=== PATIENT | female | born 1945 | race Native Hawaiian/Other Pacific Islander ===

== ENCOUNTER 2016-06-22 16:35 | Outpatient (CLI) | payer OTHER ==
[~2016-06-22 16:35] MED LIST: ALLO300T23 PO; ESTR0.45 PO; FLEXERIL10 MG PO; FURO40TA93; FURO40TA93 PO; GABA300C2 PO; GABAPENTIN600 MG OR; HEARTBURN150 MG OR; HUMALOG100 MG/ML SC; HYDR25TA15 PO; INSU100I2 SC; K-TAB20 MEQ PO; LEVOTHROID75 MCG OR; MECLIZINE25 MG PO; MELOXICAM15 MG OR; METO5TAB38 PO; NABU750T PO; NEURONTIN800 MG PO; NEXIUM40 M1 OR; NEXIUM40 M1 PO; NORCO 10/325***1 TAB PO; PHENERGAN25 MG PR; POT CL MICRO20 MEQ PO; PREMARIN0.45 MG PO; ROPINIROLE2 MG; ROPINIROLE2 MG PO
[2016-06-22 17:04] LABS: PLATELET COUNT 118 K/uL (152-353)
== END 2016-06-22 22:12 | disposition home or self-care (01) ==
LOC: LABW 16:35
PROVIDERS: Nurse Practitioner
DX: E11.9 Type 2 diabetes mellitus without complications (principal); D64.9 Anemia, unspecified; N28.9 Disorder of kidney and ureter, unspecified
CPT/HCPCS: 36415; 80048; 82728; 83036; 83540; 85027

== ENCOUNTER 2016-11-15 01:42 | Emergency (ER) | payer OTHER ==
[~2016-11-15] VITALS: Ht 165.1 cm; Wt 83.0 kg
[2016-11-15 02:31] LABS: PLATELET COUNT 137 K/uL (152-353)
[2016-11-15 03:30] LABS: POTASSIUM 4.5 mmol/L (3.6-5.2)
[2016-11-15 07:02] VITALS: BP 139/90; TEMP 98.1
== END 2016-11-15 07:02 | disposition home or self-care (01) ==
LOC: ED 01:42
DX: N39.0 Urinary tract infection, site not specified (principal); K57.90 Diverticulosis of intestine, part unspecified, without perforation or abscess without bleeding
CPT/HCPCS: 80053; 81000; 81002; 82962; 85027; 87086; 87088; 96372; 99283; J0696; J1815

== ENCOUNTER 2017-03-17 18:52 | Observation (INO) | payer OTHER ==
[~2017-03-17] VITALS: Ht 165.1 cm; Wt 83.7 kg
[2017-03-17 19:10] VITALS: BP 174/72; TEMP 98
[2017-03-17 20:35] LABS: PLATELET COUNT 205 K/uL (152-353)
[2017-03-17 20:44] LABS: POTASSIUM 4.1 mmol/L (3.6-5.2)
[2017-03-18 00:49] VITALS: BP 184/67; TEMP 98.8; Ht 165.1 cm; Wt 83.7 kg
[2017-03-18] MEDS ORDERED: MECLIZINE25 MG OR (01:42)
[2017-03-18] MEDS ORDERED: LEVO-T25 MCG PO (01:44)
[2017-03-18 04:00] VITALS: BP 149/54; TEMP 98.1
[2017-03-18 08:00] VITALS: BP 144/71; TEMP 97.9
[2017-03-18 11:54] VITALS: BP 153/49; TEMP 98.2
[2017-03-18 16:00] VITALS: BP 134/72; TEMP 97.7
[2017-03-18 20:00] VITALS: BP 152/54; TEMP 97.9
[2017-03-19] VITALS: BP 152/60; TEMP 98.1
[2017-03-19 04:00] VITALS: BP 126/84; TEMP 98.4
[2017-03-19 08:00] VITALS: BP 168/72; TEMP 98.4
[2017-03-19 12:00] VITALS: BP 145/64; TEMP 98.4
[2017-03-19 16:00] VITALS: BP 170/55; TEMP 98.1
== END 2017-03-19 19:10 | disposition home or self-care (01) ==
LOC: ED 18:52 → MED/SURG 22:39
PROVIDERS: Specialist; ADMIT Internal Medicine
DX: J18.8 Other pneumonia, unspecified organism (principal); E11.9 Type 2 diabetes mellitus without complications; J44.9 Chronic obstructive pulmonary disease, unspecified; N39.0 Urinary tract infection, site not specified; E86.9 Volume depletion, unspecified
CPT/HCPCS: 36415; 36600; 80053; 81000; 82805; 82948; 83605; 85027; 87040; 87086; 87088; 87804; 94640; 94664; 94760; 96360; 96361; 96365; 96372; 96375; 99220; 99284; G0378; J0696; J1815; J1885; J1956; J2300

== ENCOUNTER 2017-04-10 08:53 | Outpatient (CLI) | payer OTHER ==
[~2017-04-10 08:53] MED LIST changes: +LEVO-T25 MCG PO; +MECLIZINE25 MG OR
[2017-04-10] MEDS ORDERED: NEURONTIN800 MG PO ×2 (09:10)
[2017-04-10] MEDS ORDERED: K-TAB20 MEQ PO (09:11)
[2017-04-10] MEDS ORDERED: METO5TAB38 PO (09:11)
== END 2017-04-10 08:56 | disposition short-term general hospital (02) ==
LOC: AMB 08:53
DX: M54.2 Cervicalgia (principal); R53.1 Weakness; R42 Dizziness and giddiness; W18.39XA Other fall on same level, initial encounter; Y92.091 Bathroom in other non-institutional residence as the place of occurrence of the external cause
CPT/HCPCS: A0425; A0427

== ENCOUNTER 2017-04-10 08:56 | Emergency (ER) | payer OTHER ==
[~2017-04-10] VITALS: Ht 165.1 cm; Wt 81.6 kg
[2017-04-10] MEDS ORDERED: NEURONTIN800 MG PO ×2 (09:10)
[2017-04-10] MEDS ORDERED: METO5TAB38 PO (09:11)
[2017-04-10] MEDS ORDERED: K-TAB20 MEQ PO (09:11)
[2017-04-10 10:32] LABS: SODIUM 135 mmol/L (136-145)
[2017-04-10 10:41] LABS: PLATELET COUNT 117 K/uL (152-353)
[2017-04-10 13:05] VITALS: BP 160/70; TEMP 100.2
== END 2017-04-10 13:05 | disposition home or self-care (01) ==
LOC: ED 08:56
PROVIDERS: Specialist
DX: G89.29 Other chronic pain (principal); Z91.81 History of falling; R00.0 Tachycardia, unspecified
CPT/HCPCS: 36600; 80053; 81000; 82550; 82553; 82805; 83605; 83735; 84100; 84484; 85027; 93005; 99283; J1885

== ENCOUNTER → 2017-07-20 17:16 | Outpatient (CLI) | payer OTHER ==
[~2017-07-20 17:16] MED LIST changes: +B-12500 MCG PO; +COLCHICINE0.6 M1 PO; +ESOMEPRAZOLE MA40 MG PO; +HUMALOG KWI100 MG/ML SC; +HYDR10TA47 PO; +MELOXICAM15 MG PO; +PHENERGAN25 MG PO; -PHENERGAN25 MG PR
== END | disposition home or self-care (01) ==
LOC: AMB 17:16
DX: I10 Essential (primary) hypertension (principal)

== ENCOUNTER 2017-07-29 12:30 | Outpatient (CLI) | payer OTHER ==
[~2017-07-29 12:30] MED LIST changes: -B-12500 MCG PO; -COLCHICINE0.6 M1 PO; -ESOMEPRAZOLE MA40 MG PO; -HUMALOG KWI100 MG/ML SC; -HYDR10TA47 PO; -MELOXICAM15 MG PO
== END 2017-07-29 23:59 | disposition home or self-care (01) ==
LOC: US 12:30
DX: M79.604 Pain in right leg (principal)

== ENCOUNTER 2017-08-10 20:41 | Outpatient (CLI) | payer OTHER | END 2017-08-10 20:44 | disposition short-term general hospital (02) | LOC: AMB 20:41 | DX: R11.2 Nausea with vomiting, unspecified (principal) | CPT/HCPCS: A0425; A0427 ==

== ENCOUNTER 2017-08-10 20:49 | Emergency (ER) | payer OTHER ==
[~2017-08-10] VITALS: Ht 165.1 cm; Wt 79.4 kg
[2017-08-10 20:46] VITALS: TEMP 99.3
[2017-08-10 21:08] LABS: PLATELET COUNT 182 K/uL (152-353)
[2017-08-10 21:17] LABS: POTASSIUM 3.8 mmol/L (3.6-5.2)
[2017-08-10 23:19] VITALS: BP 152/72
== END 2017-08-10 23:19 | disposition home or self-care (01) ==
LOC: ED 20:49
DX: K52.89 Other specified noninfective gastroenteritis and colitis (principal)
CPT/HCPCS: 36415; 74022; 80053; 81000; 82150; 83690; 85027; 96374; 96375; 99284; J1885; J2405

== ENCOUNTER 2017-10-06 21:49 | Outpatient (CLI) | payer OTHER ==
[2017-10-07] MEDS ORDERED: ALLO300T23 PO (04:36)
[2017-10-07] MEDS ORDERED: B-12500 MCG PO (04:37)
[2017-10-07] MEDS ORDERED: MELOXICAM15 MG PO (04:38)
[2017-10-07] MEDS ORDERED: FURO40TA93 PO (04:40)
[2017-10-07] MEDS ORDERED: ESOMEPRAZOLE MA40 MG PO (04:41)
[2017-10-07] MEDS ORDERED: HYDR10TA47 PO (04:42)
[2017-10-07] MEDS ORDERED: HUMALOG KWI100 MG/ML SC (04:47)
[2017-10-07] MEDS ORDERED: COLCHICINE0.6 M1 PO (04:49)
== END 2017-10-06 22:11 | disposition short-term general hospital (02) ==
LOC: AMB 21:49
DX: I10 Essential (primary) hypertension (principal); R07.89 Other chest pain
CPT/HCPCS: A0425; A0427

== ENCOUNTER 2017-10-06 22:22 | Observation (INO) | payer OTHER ==
[~2017-10-06] VITALS: Ht 165.1 cm; Wt 85.3 kg
[2017-10-06 22:18] VITALS: BP 201/164; TEMP 99.3
[2017-10-06 22:52] LABS: PLATELET COUNT 122 K/uL (152-353)
[2017-10-07] VITALS (19 sets, daily range): BP systolic 130–181; BP diastolic 47–85; TEMP 97.8–98.4; Ht 165.1 cm; Wt 85.3 kg
--- NOTE | 2017-10-07 00:25 | NUR ---
71 YEAR OLD W/F PT ADMITTED TO ICU 3 FROM ER(PT OF DR. CARTER) FOR CHEST PAIN, DM TYPE II, ANXIETY. CAME TO ICU VIA WHEELCHAIR. ALERT AND ORIENTED X4, SKIN WARM AND DRY, RADIAL AND PEDAL PULSES INTACT, RESP RATE NONLABORED, LUNGS CLEAR TO AUSCULTATION, BS+ IN ALL4 QUADS, 22G IV LOCK INTACT TO L AC WITH NO PROBLEMS NOTED TO SITE. HAS CANE AT BEDSIDE WITH SHE USES TO AMBULATE, STATES SHE DOES USE HER WALKER AT TIMES AT HOME. R LOWER LEG/CALF SLIGHTLY SWOLLEN COMPARED TO L LEG AND PT STATES IT HAS BEEN LIKE THAT FOR A WHILE AND SHE HAS SEEN A DR ABOUT IT. PT EDUCATED PAPER RULER LIGHT AND BED CONTROLS, ALL ASPECTS OF CARE, AND ANY QUESTIONS ANSWERED. NOTE PT TEARFUL AT TIMES TALKING WITH AIR CHIEF MARSHAL ABOUT LOSSING HER DAUGHTER AND BOTH IN JUNE. REASSURED PT.
--- NOTE | 2017-10-07 01:00 | NUR ---
PT'S NEIGHBOR MARLON QUINONES HERE TO BRING HER INSULIN AND CLOTHES FROM HOME. PT ASKED ABOUT VALUABLES THAT SHE HAS AND INFORMED PT THAT SHE COULD SEND THEM HOME, HAVE THEM LOCKED UP, OR KEEP AT BEDSIDE AND WE WOULD NOT BE RESPONSIBLE FOR THEM. PT WANTS HER NEIGHBOR MARLON TO TAKE HOME A LARGE AMOUNT OF DENT THAT PT HAS ON HER AT THIS TIME. WILDER BAEZ LPN WITNESSED WITH COMMERCIAL LOAN MANAGER(NASRIN SNOW RN) WHILE DENT WAS COUNTED ALONG WITH PT'S NEIGHBOR. PAPER WRITTEN TO DOCUMENT DENT AND WITNESSES SIGNED PAPER, PAPER PLACE ON PT'S CHART. DENT $6,365.07 TOTAL GIVEN TO MARLON QUINONES AT THIS TIME TO TAKE HOME PER PT.
--- NOTE | 2017-10-07 02:14 | NUR ---
PT RESTING WITH EYES CLOSED, AROUSES OFF AND ON AND IS ORIENTED/ALERT, RESP RATE NONLABORED, O2 AT 2LPM VIA NC, 22G IV LOCK INTACT TO L AC WITH NO PROBLEMS NOTED TO SITE, VITALS STABLE, COPPERSMITH HELPER IN USE, WILL MONITOR CLOSELY, RAILS UP X3, BED IN LOW POSITION.
--- NOTE | 2017-10-07 03:10 | NUR ---
RESTING QUIETLY WITH EYES CLOSED, NO S/S OF PAIN OR DISTRESS NOTED, WILL MONITOR, RAILS UP, BED IN LOW POSITION.
--- NOTE | 2017-10-07 04:20 | NUR ---
RESTING IN BED WITH EYES CLOSED, NO DISTRESS OR PAIN NOTED, WILL MONITOR, RAILS UP X3, BED IN LOW POSITION.
[2017-10-07] MEDS ORDERED: ALLO300T23 PO (04:36)
[2017-10-07] MEDS ORDERED: B-12500 MCG PO (04:37)
[2017-10-07] MEDS ORDERED: MELOXICAM15 MG PO (04:38)
[2017-10-07] MEDS ORDERED: FURO40TA93 PO (04:40)
[2017-10-07] MEDS ORDERED: ESOMEPRAZOLE MA40 MG PO (04:41)
[2017-10-07] MEDS ORDERED: HYDR10TA47 PO (04:42)
[2017-10-07] MEDS ORDERED: HUMALOG KWI100 MG/ML SC (04:47)
[2017-10-07] MEDS ORDERED: COLCHICINE0.6 M1 PO (04:49)
--- NOTE | 2017-10-07 06:26 | NUR ---
PT RESTING IN BED WITH EYES CLOSED, NO S/S OF PAIN OR DISTRESS NOTED, IV LOCK INTACT, O2 AT 2LPM VIA NC, RESP RATE NONLABORED, DIRECTOR INTERNATIONAL IN USE, VITALS STABLE, WILL MONITOR, RAILS UP X3, BED IN LOW POSITION.
[2017-10-07 07:03] LABS: PARTIAL THROMBOPLASTIN TIME 25.4 SECONDS (24.5-33.6)
--- NOTE | 2017-10-07 07:37 | NUR ---
PT RESTING QUIELTY WITH EYES CLOSED. NAD NOTED. O2 AT 2LPM VIA NC IN USE AT THIS TIME. WILL CONTINUE TO MONITOR CLOSELY.
--- NOTE | 2017-10-07 08:06 | NUR ---
PT SITTING UP IN BED WATING BREAKFAST TRAY. PT REQUIRED SET UP HELP ONLY WITH TRAY.
--- NOTE | 2017-10-07 09:02 | NUR ---
ASSISTED PT TO BSC. PT WAS ABLE TO AMBULATE FOR SELF AND REQUIRED STAND BY ASSIST ONLY. 400 CC'S OF YELLOW URINE NOTED.
--- NOTE | 2017-10-07 09:42 | NUR ---
DR. CARTER AT BEDSIDE TO SEE PATIENT.
--- NOTE | 2017-10-07 10:41 | NUR ---
PT RESTING QUIETLY WITH EYES CLOSED. NAD NOTED. O2 AT 2LPM VIA NC IN USE AT THIS TIME
--- NOTE | 2017-10-07 11:49 | NUR ---
DR. CARTER AT BEDSIDE TO SEE PATIENT. NEW ORDERS RECEIVED.
--- NOTE | 2017-10-07 12:41 | NUR ---
PT SITTING UP ON SIDE OF BED EATING LUNCH TRAY. NO ASSISTANCE REQUIRED.
--- NOTE | 2017-10-07 13:42 | NUR ---
PT IN BED RESTING QUIETLY WITH EYES CLOSED. NAD NOTED.
--- NOTE | 2017-10-07 15:42 | NUR ---
22G IV TO THE LAC D/C AT THIS TIME WITH TIP INTACT. PT AND FAMILY MEMBER WAS GIVEN DISCHRAGE INSTRUCTIONS AND PT VERBALIZED UNDERSTANDING. ALL HOME MEDS AND BELONGINGS WERE GIVEN TO PT AT THIS TIME WELL.
--- NOTE | 2017-10-07 15:50 | NUR ---
PT D/V VIA WHEELCHAIR AT THIS TIME
== END 2017-10-07 15:50 | disposition home or self-care (01) ==
LOC: ED 22:22 → ICU 23:40
PROVIDERS: ADMIT Internal Medicine
DX: R07.89 Other chest pain (principal); F41.8 Other specified anxiety disorders; I10 Essential (primary) hypertension; J44.9 Chronic obstructive pulmonary disease, unspecified; E11.42 Type 2 diabetes mellitus with diabetic polyneuropathy; E03.8 Other specified hypothyroidism; M15.8 Other polyosteoarthritis
CPT/HCPCS: 36415; 80053; 81000; 82550; 84484; 85027; 85610; 85730; 93005; 94760; 96372; 99220; 99285; G0378; J1650; J2300

== ENCOUNTER 2018-07-09 10:14 | Outpatient (CLI) | payer OTHER ==
[~2018-07-09 10:14] MED LIST changes: +B-12500 MCG PO; +COLCHICINE0.6 M1 PO; +ESOMEPRAZOLE MA40 MG PO; +HUMALOG KWI100 MG/ML SC; +HYDR10TA47 PO; +MELOXICAM15 MG PO
== END 2018-07-09 10:18 | disposition short-term general hospital (02) ==
LOC: AMB 10:14
DX: R07.89 Other chest pain (principal); J44.9 Chronic obstructive pulmonary disease, unspecified
CPT/HCPCS: A0425; A0427

== ENCOUNTER 2018-07-09 10:22 | Emergency (ER) | payer OTHER ==
[~2018-07-09] VITALS: Ht 165.1 cm; Wt 86.2 kg
[2018-07-09 10:39] VITALS: TEMP 98
[2018-07-09 11:00] LABS: PLATELET COUNT 201 K/uL (152-353)
[2018-07-09 11:05] LABS: POTASSIUM 4.1 mmol/L (3.6-5.2); SODIUM 138 mmol/L (136-145)
[2018-07-09 15:44] LABS: PARTIAL THROMBOPLASTIN TIME 21.7 SECONDS (24.5-33.6)
[2018-07-09 18:31] LABS: PLATELET COUNT 194 K/uL (152-353)
[2018-07-09 18:40] LABS: POTASSIUM 4.3 mmol/L (3.6-5.2)
[2018-07-09 22:47] VITALS: BP 139/60
== END 2018-07-09 19:59 | disposition short-term general hospital (02) ==
LOC: ED 10:22
PROVIDERS: Emergency Medicine
DX: J18.9 Pneumonia, unspecified organism (principal); R07.89 Other chest pain; I10 Essential (primary) hypertension; R06.02 Shortness of breath
CPT/HCPCS: 36600; 80053; 82805; 83735; 83880; 84443; 84484; 85027; 85610; 85730; 87040; 87502; 87651; 93005; 99285; J0456; J0696; J1940; J2270

== ENCOUNTER 2018-09-12 14:42 | Outpatient (CLI) | payer OTHER ==
[2018-09-12 15:50] LABS: PLATELET COUNT 172 K/uL (152-353)
[2018-09-12 16:21] LABS: POTASSIUM 3.9 mmol/L (3.6-5.2)
== END 2018-09-12 23:06 | disposition home or self-care (01) ==
LOC: LABW 14:42
PROVIDERS: Nurse Practitioner
DX: D64.9 Anemia, unspecified (principal)
CPT/HCPCS: 36415; 80048; 82728; 83540; 83550; 85027

== ENCOUNTER 2018-09-15 07:49 | Observation (INO) | payer OTHER ==
[~2018-09-15] VITALS: Ht 165.1 cm; Wt 74.8 kg
[2018-09-15 14:49] VITALS: BP 138/85; TEMP 98.2; Ht 165.1 cm; Wt 74.8 kg
[2018-09-15] MEDS ORDERED: NEURONTIN800 MG PO (15:47)
[2018-09-15] MEDS ORDERED: CARV12.5 PO (15:47)
[2018-09-15] MEDS ORDERED: TESSALON PER100 MG PO (15:48)
[2018-09-15] MEDS ORDERED: COZAAR25 MG PO (15:49)
[2018-09-15 16:00] VITALS: BP 141/47; TEMP 98.4
[2018-09-15 20:00] VITALS: BP 169/66; TEMP 98.3
[2018-09-16] VITALS: BP 156/68; TEMP 98.8
[2018-09-16 04:00] VITALS: BP 144/66; TEMP 99.1
[2018-09-16 08:00] VITALS: BP 161/69; TEMP 98
[2018-09-16 12:00] VITALS: BP 150/58; TEMP 97.5
== END 2018-09-16 14:10 | disposition home or self-care (01) ==
LOC: MED/SURG 07:49
PROVIDERS: ADMIT Internal Medicine
PROC: 30233N1 Transfusion of Nonautologous Red Blood Cells into Peripheral Vein, Percutaneous Approach (ICD-10-PCS; principal; 2018-09-15)
DX: D64.89 Other specified anemias (principal); J44.9 Chronic obstructive pulmonary disease, unspecified; I25.10 Atherosclerotic heart disease of native coronary artery without angina pectoris; E11.22 Type 2 diabetes mellitus with diabetic chronic kidney disease; I13.0 Hypertensive heart and chronic kidney disease with heart failure and stage 1 through stage 4 chronic kidney disease, or unspecified chronic kidney disease; N18.3 Chronic kidney disease, stage 3 (moderate); I50.89 Other heart failure
CPT/HCPCS: 82272; 85014; 85018; 86850; 86900; 86901; 86922; 99220; G0378; G0379; J1940; P9016

== ENCOUNTER 2018-10-07 13:35 | Outpatient (CLI) | payer OTHER ==
[~2018-10-07 13:35] MED LIST changes: +CARV12.5 PO; +COZAAR25 MG PO; +TESSALON PER100 MG PO
[2018-10-07 13:57] LABS: PLATELET COUNT 132 K/uL (152-353)
[2018-10-07 14:21] LABS: POTASSIUM 3.3 mmol/L (3.6-5.2)
== END 2018-10-07 20:01 | disposition home or self-care (01) ==
LOC: LAB 13:35
PROVIDERS: Internal Medicine
DX: I11.0 Hypertensive heart disease with heart failure (principal); I50.20 Unspecified systolic (congestive) heart failure; J44.9 Chronic obstructive pulmonary disease, unspecified; E03.9 Hypothyroidism, unspecified; E11.9 Type 2 diabetes mellitus without complications; B37.2 Candidiasis of skin and nail
CPT/HCPCS: 80053; 80061; 83036; 84443; 85027

== ENCOUNTER 2018-11-03 14:58 | Inpatient (IN) | payer OTHER ==
[~2018-11-03] VITALS: Ht 165.1 cm; Wt 77.3 kg
[2018-11-03 15:07] VITALS: BP 121/51; TEMP 97.7
[2018-11-03 15:59] LABS: PLATELET COUNT 154 K/uL (152-353)
[2018-11-03 16:03] LABS: POTASSIUM 3.6 mmol/L (3.6-5.2); SODIUM 143 mmol/L (136-145)
[2018-11-03 18:42] VITALS: BP 152/62
[2018-11-03 19:33] VITALS: BP 133/51; TEMP 97.3; Ht 165.1 cm; Wt 77.3 kg
[2018-11-03 20:00] VITALS: BP 133/51; TEMP 97.3
[2018-11-03 23:52] VITALS: BP 131/55; TEMP 98
[2018-11-04] MEDS ORDERED: EUTHYROX75 MCG PO (02:04)
[2018-11-04] MEDS ORDERED: METO5TAB38 PO (02:05)
[2018-11-04] MEDS ORDERED: CARV6.25 PO (02:06)
[2018-11-04 03:57] VITALS: BP 144/61; TEMP 98.1
[2018-11-04 08:00] VITALS: BP 138/48; TEMP 99.3
[2018-11-04 12:00] VITALS: BP 142/54; TEMP 98.2
[2018-11-04 16:00] VITALS: BP 153/56; TEMP 98
[2018-11-04 19:20] VITALS: BP 133/51; TEMP 97.3
[2018-11-04 20:00] VITALS: BP 133/51; TEMP 97.3
[2018-11-05] VITALS: BP 138/53; TEMP 98.5
[2018-11-05 04:00] VITALS: BP 92/54; TEMP 99.1
[2018-11-05 08:00] VITALS: BP 145/56; TEMP 98.2
[2018-11-05 11:46] LABS: POTASSIUM 3.5 mmol/L (3.6-5.2)
[2018-11-05 12:00] VITALS: BP 158/60; TEMP 98.1
[2018-11-05 16:00] VITALS: BP 157/59; TEMP 98.4
[2018-11-05 20:00] VITALS: BP 181/66; TEMP 98.7
[2018-11-06] VITALS: BP 109/46; TEMP 98.9
[2018-11-06 04:00] VITALS: BP 143/53; TEMP 98.1
[2018-11-06 04:45] LABS: POTASSIUM 3.7 mmol/L (3.6-5.2)
[2018-11-06 08:00] VITALS: BP 146/51; TEMP 98.4
[2018-11-06 12:00] VITALS: BP 104/32; TEMP 98.4
--- NOTE | 2018-11-06 15:05 | NUR ---
1500 PT GIVEN D/C INSTRUCTIONS. INSTRUCTED TO GET MACROBID FILLED AND COMPLETE FULL TREATMENT. PT INSTRUCTED TO CON'T ALL HOME MEDS PRIOR TO ADMISSION. F/U WITH DR. CARTER IN 1-2 WEEKS. IV DC'D TIP INTACT NO REDNESS OR SWELLING NOTED. PT TOLERATED WELL. PT VOICED UNDERSTANDING. PT D/C VIA W/C.
== END 2018-11-06 15:05 | disposition home or self-care (01) | DRG 690 ==
LOC: ED 14:58 → MED/SURG 17:46
PROVIDERS: Student in an Organized Health Care Education/Training Program; ADMIT Internal Medicine
DX: N39.0 Urinary tract infection, site not specified (principal); I13.0 Hypertensive heart and chronic kidney disease with heart failure and stage 1 through stage 4 chronic kidney disease, or unspecified chronic kidney disease; N17.8 Other acute kidney failure; I95.89 Other hypotension; R53.1 Weakness; J44.9 Chronic obstructive pulmonary disease, unspecified; E03.8 Other specified hypothyroidism; B96.20 Unspecified Escherichia coli [E. coli] as the cause of diseases classified elsewhere; E11.22 Type 2 diabetes mellitus with diabetic chronic kidney disease; N18.3 Chronic kidney disease, stage 3 (moderate); E11.42 Type 2 diabetes mellitus with diabetic polyneuropathy
CPT/HCPCS: 36415; 80048; 80053; 81000; 82150; 83605; 83690; 83735; 84443; 84484; 85027; 87077; 87086; 87088; 87186; 93005; 96361; 96365; 99284; J0696

== ENCOUNTER 2018-11-09 19:34 | Outpatient (CLI) | payer OTHER ==
[~2018-11-09 19:34] MED LIST changes: +CARV6.25 PO; +EUTHYROX75 MCG PO
== END 2018-11-09 19:38 | disposition short-term general hospital (02) ==
LOC: AMB 19:34
DX: R53.1 Weakness (principal)
CPT/HCPCS: A0425; A0427

== ENCOUNTER 2018-11-09 19:46 | Emergency (ER) | payer OTHER ==
[~2018-11-09] VITALS: Ht 165.1 cm; Wt 70.8 kg
[2018-11-09 19:53] VITALS: BP 116/61; TEMP 100.8
[2018-11-09 21:03] LABS: PLATELET COUNT 190 K/uL (152-353)
[2018-11-09 21:08] LABS: POTASSIUM 3.8 mmol/L (3.6-5.2)
== END 2018-11-09 23:35 | disposition home or self-care (01) ==
LOC: ED 19:46
PROVIDERS: Emergency Medicine
DX: R50.9 Fever, unspecified (principal); E86.0 Dehydration
CPT/HCPCS: 80053; 81000; 85027; 87040; 93005; 96360; 99284

== ENCOUNTER 2018-12-14 11:34 | Outpatient (CLI) | payer OTHER | END 2018-12-14 23:12 | disposition home or self-care (01) | LOC: MRI 11:34 | DX: M54.16 Radiculopathy, lumbar region (principal) ==

== ENCOUNTER 2018-12-30 13:00 | Outpatient (CLI) | payer OTHER | END 2018-12-30 19:11 | disposition home or self-care (01) | LOC: LAB 13:00 | DX: E05.80 Other thyrotoxicosis without thyrotoxic crisis or storm (principal) | CPT/HCPCS: 84443 ==

== ENCOUNTER 2019-02-01 16:21 | Outpatient (CLI) | payer OTHER ==
[2019-02-01 16:45] LABS: PLATELET COUNT 153 K/uL (152-353)
[2019-02-01 17:05] LABS: POTASSIUM 3.9 mmol/L (3.6-5.2)
== END 2019-02-01 19:46 | disposition home or self-care (01) ==
LOC: LAB 16:21
PROVIDERS: Internal Medicine
DX: R30.0 Dysuria (principal); R35.8 Other polyuria; N39.0 Urinary tract infection, site not specified; D64.89 Other specified anemias; E03.8 Other specified hypothyroidism; I10 Essential (primary) hypertension; E11.9 Type 2 diabetes mellitus without complications
CPT/HCPCS: 80053; 81000; 84443; 85027

== ENCOUNTER 2019-02-20 16:33 | Outpatient (CLI) | payer OTHER ==
[2019-02-20 16:57] LABS: PLATELET COUNT 151 K/uL (152-353)
[2019-02-20 17:17] LABS: POTASSIUM 3.7 mmol/L (3.6-5.2)
== END 2019-02-20 20:10 | disposition home or self-care (01) ==
LOC: LAB 16:33
PROVIDERS: Internal Medicine
DX: Z00.00 Encounter for general adult medical examination without abnormal findings (principal); E05.80 Other thyrotoxicosis without thyrotoxic crisis or storm; E11.9 Type 2 diabetes mellitus without complications; D64.89 Other specified anemias; I50.20 Unspecified systolic (congestive) heart failure; I11.0 Hypertensive heart disease with heart failure
CPT/HCPCS: 80053; 80061; 81000; 82306; 83036; 84443; 85027

== ENCOUNTER 2019-04-20 01:14 | Outpatient (CLI) | payer OTHER ==
[2019-04-20] MEDS ORDERED: VIT B12/FA PO (06:21)
[2019-04-20] MEDS ORDERED: ROPINIROLE0.5 MG PO (06:23)
[2019-04-20] MEDS ORDERED: MECLIZINE25 MG PO (06:23)
[2019-04-20] MEDS ORDERED: CYCLOBENZAPRINE5 MG PO (06:24)
[2019-04-20] MEDS ORDERED: DOCU100C10 PO (06:24)
[2019-04-20] MEDS ORDERED: PROMETHAZINE HY25 MG PO (06:26)
[2019-04-20] MEDS ORDERED: BENZONATATE100 MG PO (06:26)
[2019-04-20] MEDS ORDERED: ALPR0.2566 PO (06:27)
[2019-04-20] MEDS ORDERED: NEURONTIN800 MG PO (06:28)
== END 2019-04-20 01:17 | disposition short-term general hospital (02) ==
LOC: AMB 01:14
DX: R50.9 Fever, unspecified (principal); R05 Cough
CPT/HCPCS: A0425; A0429

== ENCOUNTER 2019-04-20 01:23 | Inpatient (IN) | payer OTHER ==
[~2019-04-20] VITALS: Ht 165.1 cm; Wt 77.4 kg
[2019-04-20 01:42] VITALS: BP 137/77; TEMP 101.2
[2019-04-20 01:45] LABS: PLATELET COUNT 156 K/uL (152-353)
[2019-04-20 01:52] LABS: POTASSIUM 3.9 mmol/L (3.6-5.2); SODIUM 140 mmol/L (136-145)
[2019-04-20 03:29] VITALS: BP 130/68; TEMP 98.5; Ht 165.1 cm; Wt 77.4 kg
[2019-04-20] MEDS ORDERED: VIT B12/FA PO (06:21)
[2019-04-20] MEDS ORDERED: MECLIZINE25 MG PO (06:23)
[2019-04-20] MEDS ORDERED: ROPINIROLE0.5 MG PO (06:23)
[2019-04-20] MEDS ORDERED: DOCU100C10 PO (06:24)
[2019-04-20] MEDS ORDERED: CYCLOBENZAPRINE5 MG PO (06:24)
[2019-04-20] MEDS ORDERED: BENZONATATE100 MG PO (06:26)
[2019-04-20] MEDS ORDERED: PROMETHAZINE HY25 MG PO (06:26)
[2019-04-20] MEDS ORDERED: ALPR0.2566 PO (06:27)
[2019-04-20] MEDS ORDERED: NEURONTIN800 MG PO (06:28)
[2019-04-20 08:00] VITALS: BP 118/46; TEMP 97.8
[2019-04-20 12:00] VITALS: BP 106/62; TEMP 99.5
[2019-04-20 16:00] VITALS: BP 129/42; TEMP 98.3
[2019-04-20 19:49] VITALS: BP 127/42; TEMP 99
[2019-04-21] VITALS: BP 171/54; TEMP 98.8
[2019-04-21 04:29] VITALS: BP 169/62; TEMP 99.6
[2019-04-21 08:00] VITALS: BP 166/71; TEMP 101.4
[2019-04-21 12:00] VITALS: BP 119/44; TEMP 98.4
[2019-04-21 16:00] VITALS: BP 101/35; TEMP 98.9
[2019-04-21 20:00] VITALS: BP 96/49; TEMP 98.8
[2019-04-22] VITALS: BP 112/49; TEMP 99.1
[2019-04-22 04:00] VITALS: BP 125/57; TEMP 98.9
[2019-04-22 08:00] VITALS: BP 134/40; TEMP 98.8
[2019-04-22 12:00] VITALS: BP 136/47; TEMP 99.6
[2019-04-22 16:00] VITALS: BP 141/48; TEMP 97.6
[2019-04-22 20:00] VITALS: BP 138/58; TEMP 99.6
[2019-04-23] VITALS: BP 110/84; TEMP 98
[2019-04-23 04:00] VITALS: BP 112/43; TEMP 98.3
[2019-04-23 08:00] VITALS: BP 130/54; TEMP 99.8
[2019-04-23 12:00] VITALS: BP 107/76; TEMP 98.5
[2019-04-23 16:00] VITALS: BP 116/41; TEMP 98.2
[2019-04-23 20:00] VITALS: BP 114/67; TEMP 98.2
[2019-04-24] VITALS: BP 121/39; TEMP 99.3
[2019-04-24 04:00] VITALS: BP 135/53; TEMP 98.9
[2019-04-24 08:00] VITALS: BP 104/59; TEMP 99.2
[2019-04-24 12:00] VITALS: BP 138/67; TEMP 99.3
[2019-04-24 12:10] LABS: PLATELET COUNT 158 K/uL (152-353)
[2019-04-24 12:17] LABS: POTASSIUM 4.8 mmol/L (3.6-5.2)
[2019-04-24 16:00] VITALS: BP 161/78; TEMP 98.2
[2019-04-24 20:00] VITALS: BP 168/79; TEMP 98.6
[2019-04-25] VITALS: BP 166/76; TEMP 98.2
[2019-04-25 04:00] VITALS: BP 160/72; TEMP 98.1
[2019-04-25 08:00] VITALS: BP 155/67; TEMP 97.5
[2019-04-25 12:00] VITALS: BP 150/44; TEMP 97.7
[2019-04-25 16:00] VITALS: BP 147/51; TEMP 98.2
[2019-04-25 20:00] VITALS: BP 167/72; TEMP 99
[2019-04-26 00:24] VITALS: BP 147/105; TEMP 99.7
[2019-04-26 04:00] VITALS: BP 136/59; TEMP 98.4
[2019-04-26 08:00] VITALS: BP 120/46; TEMP 98.3
[2019-04-26 12:00] VITALS: BP 156/78; TEMP 98.1
[2019-04-26 16:00] VITALS: BP 174/70; TEMP 98.2
[2019-04-26 20:00] VITALS: BP 106/42; TEMP 98.3
[2019-04-27] VITALS: BP 146/56; TEMP 97.9
[2019-04-27 04:00] VITALS: BP 166/81; TEMP 98.2
[2019-04-27 08:00] VITALS: BP 162/73; TEMP 97.9
[2019-04-27 12:00] VITALS: BP 110/59; TEMP 97.8
[2019-04-27 16:00] VITALS: BP 134/71; TEMP 98.5
[2019-04-27 20:00] VITALS: BP 128/62; TEMP 98.2
[2019-04-28] VITALS: BP 134/61; TEMP 98.9
[2019-04-28 03:56] LABS: PLATELET COUNT 200 K/uL (152-353)
[2019-04-28 04:00] VITALS: BP 130/59; TEMP 98.3
[2019-04-28 04:33] LABS: POTASSIUM 3.7 mmol/L (3.6-5.2)
[2019-04-28 08:00] VITALS: BP 114/52; TEMP 97.9
[2019-04-28] MEDS ORDERED: GABA300C2 PO (09:13)
[2019-04-28] MEDS ORDERED: CEFU250T2 PO (09:13)
[2019-04-28] MEDS ORDERED: LEVO250T2 PO (09:13)
[2019-04-28] MEDS ORDERED: ESOMEPRAZOLE MA40 MG PO (09:23)
[2019-04-28] MEDS ORDERED: EUTHYROX75 MCG PO (09:27)
== END 2019-04-28 10:53 | disposition home or self-care (01) | DRG 190 ==
LOC: ED 01:23 → MED/SURG 02:38
PROVIDERS: Emergency Medicine; ADMIT Internal Medicine
DX: J44.0 Chronic obstructive pulmonary disease with (acute) lower respiratory infection (principal); J18.8 Other pneumonia, unspecified organism; I13.0 Hypertensive heart and chronic kidney disease with heart failure and stage 1 through stage 4 chronic kidney disease, or unspecified chronic kidney disease; E11.22 Type 2 diabetes mellitus with diabetic chronic kidney disease; N18.3 Chronic kidney disease, stage 3 (moderate)
CPT/HCPCS: 36415; 80048; 80053; 81000; 82272; 82550; 82553; 83605; 83880; 84484; 85014; 85018; 85027; 85379; 85610; 86850; 86900; 86901; 86922; 87040; 87088; 87502; 87899; 93005; 94640; 94664; 94760; 96360; 96365; 99284; J0696; J1650; J1940; J1956; P9016

== ENCOUNTER 2019-07-18 22:02 | Emergency (ER) | payer OTHER ==
[~2019-07-18] VITALS: Ht 165.1 cm; Wt 75.3 kg
[~2019-07-18 22:02] MED LIST changes: +ALPR0.2566 PO; +BENZONATATE100 MG PO; +CEFU250T2 PO; +CYCLOBENZAPRINE5 MG PO; +DOCU100C10 PO; +LEVO250T2 PO; +PROMETHAZINE HY25 MG PO; +ROPINIROLE0.5 MG PO; +VIT B12/FA PO
[2019-07-18 23:09] LABS: PLATELET COUNT 133 K/uL (152-353)
[2019-07-18 23:30] LABS: POTASSIUM 3.8 mmol/L (3.6-5.2); SODIUM 142 mmol/L (136-145)
[2019-07-19 01:05] VITALS: BP 122/54; TEMP 98.1
== END 2019-07-19 01:05 | disposition home or self-care (01) ==
LOC: ED 22:02
PROVIDERS: Family Medicine
DX: R53.1 Weakness (principal); R52 Pain, unspecified; Z79.899 Other long term (current) drug therapy
CPT/HCPCS: 36415; 80053; 80307; 81000; 82150; 82550; 83605; 83690; 84484; 85027; 87040; 87502; 93005; 96360; 96375; 99284; J1885; J2405

== ENCOUNTER 2019-07-28 07:12 | Outpatient (CLI) | payer OTHER ==
[2019-07-28 10:48] LABS: PLATELET COUNT 137 K/uL (152-353)
[2019-07-28 11:05] LABS: POTASSIUM 3.4 mmol/L (3.6-5.2)
== END 2019-07-28 19:26 | disposition home or self-care (01) ==
LOC: CT 07:12 → LAB 07:12 → CT 19:26
PROVIDERS: Internal Medicine
DX: R74.8 Abnormal levels of other serum enzymes (principal); R10.30 Lower abdominal pain, unspecified; R94.5 Abnormal results of liver function studies; R10.84 Generalized abdominal pain
CPT/HCPCS: 36415; 80053; 85027; Q9963

== ENCOUNTER 2019-08-06 18:20 | Emergency (ER) | payer OTHER ==
[~2019-08-06] VITALS: Ht 165.1 cm; Wt 76.7 kg
[2019-08-06 19:36] LABS: PLATELET COUNT 241 K/uL (152-353)
[2019-08-06 19:42] LABS: POTASSIUM 3.9 mmol/L (3.6-5.2)
[2019-08-06 20:56] VITALS: BP 150/55; TEMP 98.4
== END 2019-08-06 20:56 | disposition home or self-care (01) ==
LOC: ED 18:20
PROVIDERS: Hospitalist
DX: N30.90 Cystitis, unspecified without hematuria (principal); N39.0 Urinary tract infection, site not specified
CPT/HCPCS: 80053; 81000; 85027; 87077; 87086; 87088; 87186; 96365; 96375; 99284; J0696; J1885; J1956; J2405

== ENCOUNTER 2019-08-18 09:20 | Emergency (ER) | payer OTHER ==
[~2019-08-18] VITALS: Ht 165.1 cm; Wt 76.7 kg
[2019-08-18 10:06] LABS: PLATELET COUNT 181 K/uL (152-353)
[2019-08-18 10:16] LABS: POTASSIUM 3.9 mmol/L (3.6-5.2)
[2019-08-18 13:07] VITALS: BP 150/50; TEMP 98.3
== END 2019-08-18 13:07 | disposition home or self-care (01) ==
LOC: ED 09:20
PROVIDERS: Family Medicine
DX: N30.80 Other cystitis without hematuria (principal); R74.8 Abnormal levels of other serum enzymes; R91.1 Solitary pulmonary nodule
CPT/HCPCS: 36415; 80053; 81000; 82150; 83690; 85027; 99283

== ENCOUNTER 2019-08-20 14:24 | Emergency (ER) | payer OTHER ==
[~2019-08-20] VITALS: Ht 165.1 cm; Wt 76.7 kg
[2019-08-20 15:05] LABS: PLATELET COUNT 165 K/uL (152-353)
[2019-08-20 18:30] VITALS: BP 142/55; TEMP 97.8
== END 2019-08-20 18:30 | disposition short-term general hospital (02) ==
LOC: ED 14:32
PROVIDERS: Hospitalist
DX: K83.1 Obstruction of bile duct (principal)
CPT/HCPCS: 80053; 82150; 83690; 85027; 96360; 96365; 96374; 96375; 99284

== ENCOUNTER 2020-07-06 20:12 | Emergency (ER) | payer OTHER ==
[~2020-07-06] VITALS: Ht 165.1 cm; Wt 63.5 kg
[2020-07-06 21:54] VITALS: BP 166/91; TEMP 98.9
== END 2020-07-06 21:54 | disposition home or self-care (01) ==
LOC: ED 20:12
DX: U07.1 COVID-19 (principal); J06.9 Acute upper respiratory infection, unspecified
CPT/HCPCS: 87635; 99282; U0003

== ENCOUNTER 2020-07-09 10:49 | Emergency (ER) | payer OTHER ==
[~2020-07-09] VITALS: Ht 165.1 cm; Wt 63.5 kg
[2020-07-09 12:06] LABS: PLATELET COUNT 53 K/uL (152-353)
[2020-07-09 12:20] LABS: POTASSIUM 2.8 mmol/L (3.6-5.2); SODIUM 147 mmol/L (136-145)
[2020-07-09 14:35] VITALS: BP 135/72; TEMP 97.9
== END 2020-07-09 14:35 | disposition home or self-care (01) ==
LOC: ED 10:49
PROVIDERS: Family Medicine
DX: R07.89 Other chest pain (principal); E87.6 Hypokalemia; U07.1 COVID-19
CPT/HCPCS: 80053; 81000; 82550; 84484; 85027; 93005; 99283

== ENCOUNTER 2020-10-01 21:33 | Emergency (ER) | payer OTHER ==
[~2020-10-01] VITALS: Ht 165.1 cm; Wt 63.5 kg
[2020-10-01 22:22] LABS: PLATELET COUNT 63 K/uL (152-353)
[2020-10-01 22:24] LABS: POTASSIUM 3.8 mmol/L (3.6-5.2); SODIUM 143 mmol/L (136-145)
[2020-10-02 00:40] VITALS: BP 125/101; TEMP 98.2
== END 2020-10-02 00:40 | disposition home or self-care (01) ==
LOC: ED 21:33
PROVIDERS: Emergency Medicine Emergency Medical Services
DX: R09.1 Pleurisy (principal)
CPT/HCPCS: 80053; 83735; 84484; 85027; 85379; 85610; 93005; 96360; 96361; 96374; 99284; J1885

== ENCOUNTER 2020-12-30 14:42 | Emergency (ER) | payer OTHER ==
[~2020-12-30] VITALS: Ht 165.1 cm; Wt 67.6 kg
[2020-12-30 19:18] LABS: PLATELET COUNT 82 K/uL (152-353)
[2020-12-30 19:29] LABS: POTASSIUM 3.6 mmol/L (3.6-5.2); SODIUM 146 mmol/L (136-145)
[2020-12-30 20:40] VITALS: BP 107/85; TEMP 97.6
== END 2020-12-30 20:40 | disposition home or self-care (01) ==
LOC: ED 14:42
PROVIDERS: Emergency Medicine Emergency Medical Services
DX: H83.01 Labyrinthitis, right ear (principal); M50.30 Other cervical disc degeneration, unspecified cervical region; M51.36 Other intervertebral disc degeneration, lumbar region; R42 Dizziness and giddiness
CPT/HCPCS: 36415; 80053; 81000; 84484; 85027; 93005; 96360; 99284

== ENCOUNTER 2021-05-16 10:32 | Emergency (ER) | payer OTHER ==
[~2021-05-16] VITALS: Ht 165.1 cm; Wt 67.6 kg
[2021-05-16 10:56] LABS: PLATELET COUNT 152 K/uL (152-353)
[2021-05-16 11:04] LABS: POTASSIUM 4.4 mmol/L (3.6-5.2)
[2021-05-16 11:09] LABS: PARTIAL THROMBOPLASTIN TIME 24.4 SECONDS (24.5-33.6)
[2021-05-16 13:00] VITALS: BP 107/55; TEMP 98.2
== END 2021-05-16 13:00 | disposition short-term general hospital (02) ==
LOC: ED 10:32
PROVIDERS: Emergency Medicine
PROC: 0T9B70Z Drainage of Bladder with Drainage Device, Via Natural or Artificial Opening (ICD-10-PCS; principal; 2021-05-16)
DX: I21.29 ST elevation (STEMI) myocardial infarction involving other sites (principal); I50.9 Heart failure, unspecified; J18.9 Pneumonia, unspecified organism; L03.116 Cellulitis of left lower limb; Z11.52 Encounter for screening for COVID-19
CPT/HCPCS: 51702; 80053; 81000; 83880; 84484; 85027; 85379; 85610; 85730; 87040; 87635; 93005; 96365; 96375; 99285; J0696; J1940; U0003